=== PATIENT | male | born 1990 | race African-American/Black ===

== ENCOUNTER 2018-10-04 16:05 | Emergency (ER) | payer SELFPAY ==
[~2018-10-04] VITALS: Ht 182.9 cm; Wt 82.0 kg
[2018-10-04] MEDS ORDERED: KETOROLAC 60MG/2ML VIAL IM STA (18:45)
[2018-10-04] MEDS ORDERED: CYCLOBENZAPRINE 10MG TABLET PO ONE (18:45)
[2018-10-04 19:46] VITALS: BP 132/79
== END 2018-10-04 19:47 | disposition home or self-care (01) ==
LOC: ER 16:05
DX: M54.2 Cervicalgia (principal); Z88.0 Allergy status to penicillin
CPT/HCPCS: 96372; 99283; J1885